=== PATIENT | female | born 1970 | race Caucasian/White ===

== ENCOUNTER 2019-11-28 15:01 | Emergency (ER) | payer OTHER ==
[~2019-11-28] VITALS: Ht 162.6 cm; Wt 107.3 kg
[2019-11-28 15:02] VITALS: BP 124/62
[2019-11-28] MEDS ORDERED: KETOROLAC 30 MG/1 ML IM ONE (15:30)
[2019-11-28] MEDS ORDERED: KETOROLAC 30 MG/1 ML ONE (15:47)
[2019-11-28] MEDS ORDERED: METHOCARBAMOL 750 MG TABLET ONE (16:10)
[2019-11-28] MEDS ORDERED: METHOCARBAMOL 750 MG TABLET PO ONE (16:30)
[2019-11-28] MEDS ORDERED: ONDANSETRON ODT 4 MG ONE (18:27)
[2019-11-28] MEDS ORDERED: ONDANSETRON ODT 4 MG PO ONE (18:30)
== END 2019-11-28 18:52 | disposition home or self-care (01) ==
LOC: ED 17:08
DX: M54.41 Lumbago with sciatica, right side (principal); M25.551 Pain in right hip; G89.29 Other chronic pain; E66.9 Obesity, unspecified
CPT/HCPCS: 72100; 73502; 73700; 99284; J7512; Q0162